=== PATIENT | female | born 1950 | race Caucasian/White ===

== ENCOUNTER 2023-09-23 09:55 | Emergency (ER) | payer MEDICARE, BC, SELFPAY ==
[2023-09-23 10:03] VITALS: BP 142/60; PULSE 62; RESP 18; TEMP 36.3; O2SAT 95; BMI 32.0
--- NOTE | 2023-09-23 10:10 | ED_ITS ---
HPI - Extremity Injury (Lower) General Time Seen by Provider: 10:10 Date Seen: 09/23/23 Chief Complaint: Extremity Pain/Injury, Lower Stated Complaint: left knee pain Time Seen by Provider: 09/23/23 10:10 Source: patient and RN notes reviewed Mode of arrival: ambulatory Limitations: no limitations History of Present Illness HPI Narrative: This 72-year-old female is coming in to the ER with left knee pain. She started noticing pain in her knee on Sunday, may have worsened carrying a chair up a hill. There is no definitive trauma. She does have a history of gout. The pain is along the medial knee. It hurts with bending and walking. She can find a position of comfort when lying. Helps to have the knee more straight from what she is describing. She has been having to ambulate with a cane which she normally would not. There is no pain in her hip, pain does not radiate from the knee. Related Data Allergies Allergy/AdvReac Type Severity Reaction Status Date / Time benzocaine Allergy Unknown Verified 07/23/23 13:43 ciprofloxacin Allergy Unknown Verified 07/23/23 13:43 hexachlorophene Allergy Unknown Verified 07/23/23 13:43 latex Allergy Unknown Rash Verified 07/23/23 13:43 omeprazole Allergy Unknown Rash Verified 07/23/23 13:43 bacitracin Allergy Verified 07/23/23 13:43 [From Triple Antibiotic] erythromycin base Allergy Rash Verified 07/23/23 13:43 house dust mite Allergy Verified 07/23/23 13:43 lanolin Allergy Verified 07/23/23 13:43 neomycin Allergy Verified 07/23/23 13:43 [From Triple Antibiotic] Penicillins Allergy Verified 07/23/23 13:43 polymyxin B Allergy Verified 07/23/23 13:43 [From Triple Antibiotic] ragweed pollen Allergy Rash Verified 07/23/23 13:43 Review of Systems Narrative: As per HPI. PFSH PFS Medical History (Updated 09/23/23 @ 12:43 by Syeda Cohen MD) Cholelithiasis ?K80.20 - Calculus of gallbladder without cholecystitis without obstruction (ICD-10) Prediabetes (01/08/20) ?R73.03 - Prediabetes (ICD-10) Surgical History (Updated 07/23/23 @ 13:44 by Nereida Pelayo ~ [facility], [facility]) History of cholecystectomy (2020) ?Z90.49 - Acquired absence of other specified parts of digestive tract (ICD- 10) Family History (Updated 07/23/23 @ 13:47 by Nereida Pelayo ~ [facility], [facility]) Brother Diabetes Father Diabetes Coronary artery disease Mother Diabetes Macular degeneration Sister Diabetes Daughter Breast cancer Other Rheumatoid arthritis Social History (Updated 07/23/23 @ 13:47 by Nereida Pelayo ~ [facility], [facility]) Smoking Status: Never smoker Do you use any of these nicotine containing products: None Second hand tobacco smoke exposure: No How often do you have a drink containing alcohol: never How many standard drinks containing alcohol do you have on a typical day: 1 or 2 AUDIT-C Alcohol total score: 0 Non-prescribed substance use: denies use service: No Exam Const: Vital Signs, click to edit/add: Vital Signs - 24 hr 09/23/23 10:03 Temperature 97.4 F L Pulse Rate [Pulse Oximeter] 62 Respiratory Rate 18 Blood Pressure [Ri ght Forearm] 142/60 H Pulse Oximetry 95 Oxygen Delivery Me thod Room Air This 72-year-old female seen in exam room to, lying in the bed. Left lower extremity without any visible erythema. The left knee joint has no appreciable swelling. She is tender along the medial joint line in a distribution that would be consistent with a medial collateral ligament. There is no joint effusion. I a.m. able to gently flex her knee, does start having pain around 90?, can flex it fully though. There is no pain in the popliteal fossa, no popliteal fossa masses. I really cannot do a Carter's as the knee is painful medially when I attempt significant manipulation. When I stress the medial collateral ligament, gives her significant increase in her pain. There is no knee joint effusion, the skin is not warm, there is normal skin coloration. She has no pain with internal external rotation of the knee. There is no lower extremity edema of this extremity. Documenting provider has reviewed patient's vital signs: yes Course Course ED Course: Have reviewed with patient that we can do a knee x-ray. She understands that this does not necessarily show ligamentous changes or cartilage changes. We did discuss possibility of degenerative cartilage issues, nontraumatic problems with ligaments and cartilage that can happen as we age. Reevaluation(s) Time of Reevaluation #1: 12:36 Reevaluation #1: Reviewed x-ray report with patient. She does have some minimal joint space narrowing. There is no acute change. She tried the knee immobilizer and actually she felt put too much pressure on her knee, did not like the fact that she could not bend her knee, had difficulty getting up. We discussed trying a neoprene sleeve or rubber sleeve that she can get [id number], she would like to do that instead. Will have her follow up with Orthopedics and do activities as tolerated in the meantime. Vital Signs Vital signs: Initial Vital Signs Temperature 97.4 F L 09/23/23 10:03 Temperature Source Temporal Artery Scan 09/23/23 10:03 Pulse Rate 62 09/23/23 10:03 Respiratory Rate 18 09/23/23 10:03 Blood Pressure 142/60 H 09/23/23 10:03 Blood Pressure Mean 87 09/23/23 10:03 Blood Pressure Position Supine 09/23/23 10:03 Pulse Oximetry 95 09/23/23 10:03 Oxygen Delivery Method Room Air 09/23/23 10:03 Vital Signs Temperature 97.4 F L 09/23/23 10:03 Pulse Rate 62 09/23/23 10:03 Respiratory Rate 18 09/23/23 10:03 Blood Pressure 142/60 H 09/23/23 10:03 Pulse Oximetry 95 09/23/23 10:03 Oxygen Delivery Method Room Air 09/23/23 10:03 Temperature 97.4 F L 09/23/23 10:03 Pulse Rate 62 09/23/23 10:03 Respiratory Rate 18 09/23/23 10:03 Blood Pressure 142/60 H 09/23/23 10:03 Pulse Oximetry 95 09/23/23 10:03 Oxygen Delivery Method Room Air 09/23/23 10:03 MDM - Extremity Injury (Lower) Imaging Data XR left knee: Attestation: I have reviewed the pertinent imaging results. My impression: No significant definitive pathology on my preliminary review, wait radiology over-read. Radiologist's impression: Patient: JANE HOLLAND Facility:?[facility] Patient ID:?[id number] Site Patient ID:?[id number]. Site :?[id number] Study:?XRay-Knee Left 2v-09/23/2023 11:17:14 AM Ordering Physician:Carey Landa Final Report: INDICATION: Left knee pain. Technique: Two-views. COMPARISON: None. FINDINGS: There is no radiographically evident acute/displaced fracture/dislocation. Very slight medial compartment narrowing. There is some mild patellofemoral joint space narrowing. Prominent osteophyte at the superior patella. No definitive radiographic evidence of significant joint effusion. No intrinsic bone lesion identified. Impression : No acute fracture/bony abnormality. Chronic changes, as above. Dictated by Aashish Burnette MD @ 09/23/2023 11:49:44 AM (Electronic Signature) Discharge Plan Discharge Clinical Impression: Acute pain of left knee Patient Disposition: Home, Self-Care Condition: Stable Instructions: Knee Pain (ED) Additional Instructions: You need to follow up with Orthopedics to help further define the etiology of your knee symptoms. There is pain along the inside of the knee, the medial collateral ligament could be part of the problem. It is possible to have degenerative cartilage tears within the knee as well which can cause pain. There is some x-ray evidence of some mild arthritis with joint space narrowing which could point to internal knee pathology like a degenerative cartilage tear. Use your cane for stability, can try the knee sleeve which you can purchase [id number]. Can try ice or heat an use whichever feels better. Can use Tylenol per bottle directions as needed for pain management. Phone number for the orthopedic office is [phone], please call tomorrow to get scheduled for an appointment. Activity Level: Activity as Tolerated Follow Up/Referrals: Dorinda Slater [Primary Care Provider] - Stand Alone Forms: My[facility] Info Instructions
--- NOTE | 2023-09-23 10:19 | CRLHL7_ITS ---
For Patients: As a result of the Cures Act, medical imaging exams and procedure reports are released immediately into your electronic medical record. You may view this report before your referring provider. If you have questions, please contact your health care provider. INDICATION: Left knee pain. Technique: Two-views. COMPARISON: None. FINDINGS: There is no radiographically evident acute/displaced fracture/dislocation. Very slight medial compartment narrowing. There is some mild patellofemoral joint space narrowing. Prominent osteophyte at the superior patella. No definitive radiographic evidence of significant joint effusion. No intrinsic bone lesion identified. Impression : No acute fracture/bony abnormality. Chronic changes, as above. Dictated by Aashish Burnette MD @ 09/23/2023 11:49:44 AM (Electronically Signed)
== END 2023-09-23 12:49 | disposition home or self-care (01) ==
PROVIDERS: Emergency Provider Family Medicine; PCP Internal Medicine
DX: M25.562 Pain in left knee (principal)
CPT/HCPCS: 73560; 99283

== ENCOUNTER 2024-12-12 08:28 | Outpatient (CLI) | payer MEDICARE, BC, SELFPAY | END 2024-12-12 08:29 | disposition home or self-care (01) | PROVIDERS: PCP Family Medicine; Visit Provider Family Medicine | DX: R73.03 Prediabetes (principal); K76.0 Fatty (change of) liver, not elsewhere classified | CPT/HCPCS: 80048; 80061; 84460 ==